=== PATIENT | male | born 1990 | race Caucasian/White ===

== ENCOUNTER 2022-07-05 19:46 | Emergency (ER) | payer OTHER ==
[~2022-07-05] VITALS: Ht 165.1 cm; Wt 81.6 kg
[2022-07-05 20:27] VITALS: BP 134/78
--- NOTE | 2022-07-05 20:29 | NUR ---
ER MD examining pt in triage.
--- NOTE | 2022-07-05 20:38 | NUR ---
PT TO BED #11
[2022-07-05] MEDS ORDERED: HYDROcodone/APAP 5/325 MG 1 TAB TAB PO ONE (20:40)
--- NOTE | 2022-07-05 20:50 | NUR ---
surgical techniciandavis Chong, irrigating wounds with sterile water, patient tolerating proceedure well.
--- NOTE | 2022-07-05 20:59 | NUR ---
Patient lying in bed, A/Ox4, chest rise and fall symmetrical, no s/s of distress.
--- NOTE | 2022-07-05 21:00 | NUR ---
PT to CT
--- NOTE | 2022-07-05 21:22 | NUR ---
Pt back from CT
--- NOTE | 2022-07-05 21:43 | NUR ---
Dr. Del Rio performing proceedure on patient.
[2022-07-05 22:21] VITALS: BP 129/72
--- NOTE | 2022-07-05 22:22 | NUR ---
Patient discharged with v/s stable. Written and verbal after care instructions given and explained. Patient verbalized understanding. Ambulatory with steady gait. All questions addressed prior to discharge. Advised to follow up with PMD.
== END 2022-07-05 22:21 | disposition home or self-care (01) ==
LOC: MED 19:46
DX: S01.412A Laceration without foreign body of left cheek and temporomandibular area, initial encounter (principal); M79.675 Pain in left toe(s); V19.88XA Pedal cyclist (driver) (passenger) injured in other specified transport accidents, initial encounter; Y93.89 Activity, other specified; Y92.89 Other specified places as the place of occurrence of the external cause; Y99.8 Other external cause status
CPT/HCPCS: 12011; 70450; 70486; 72125; 73660; 99284; Q0092